=== PATIENT | male | born 1955 | race Caucasian/White ===

== ENCOUNTER 2025-06-03 06:08 | Day surgery (SDC) | payer MEDICARE, SELFPAY ==
[2025-06-03] VITALS (9 sets, daily range): BP systolic 103–162; BP diastolic 70–88; BMI 34.5
[2025-06-03] MEDS: MOBIC 15 MG PO (08:12)
[2025-06-03] MEDS: TYLENOL 1000 MG PO (08:12)
[2025-06-03] MEDS: NORMOSOL-R/PLASMALYTE-A 1000 IV (08:14)
== END 2025-06-03 13:05 | disposition home or self-care (01) ==
LOC: SDS 06:08
PROVIDERS: ATTENDING PHYSICIAN Specialist; FAMILY PHYSICIAN Family Medicine
DX: S46.212A Strain of muscle, fascia and tendon of other parts of biceps, left arm, initial encounter (principal); X58.XXXA Exposure to other specified factors, initial encounter; M75.112 Incomplete rotator cuff tear or rupture of left shoulder, not specified as traumatic; M75.42 Impingement syndrome of left shoulder
CPT/HCPCS: 29827